=== PATIENT | male | born 1960 | race Caucasian/White ===

== ENCOUNTER 2023-05-16 08:05 | Outpatient (OUT) | payer OTHER, SELFPAY ==
[2023-05-16 08:57] LABS: Alanine Aminotransferase 76 U/L (16-63); Albumin Globulin Ratio 0.9; Albumin Level 3.8 g/dL (3.4-5.0); Alkaline Phosphatase 61 U/L (46-116); Anion Gap 14.3; Aspartate Amino Transferase 32 U/L (15-37); BUN Creatinine Ratio 18.2; Bilirubin Total 0.8 mg/dL (0.2-1.0); Carbon Dioxide 23.9 mmol/L (21.0-32.0); Chloride 104 mmol/L (98-107); Chol HDL Ratio 4.3; Cholesterol 196 mg/dL (<=200); Estimated GFR (African America >60 (>=60); Estimated GFR (Non-African Ame >60 (>=60); Glucose 105 mg/dL (74-106); HDL Cholesterol 46 mg/dL (40-60); LDL Cholesterol Calculated 131.4 mg/dL; Potassium 4.2 mmol/L (3.5-5.1); Sodium 138 mmol/L (136-145); Total Protein 7.8 g/dL (6.4-8.2); Triglycerides 93 mg/dL (<=150); VLDL CHOLESTEROL 18.6 mg/dL
[2023-05-16 09:58] LABS: Basophils Percent Auto 0.6 % (0.2-2.0); Eosinophils Absolute Auto 0.1 10^3/uL (0.0-0.7); Eosinophils Percent Auto 2.1 % (0.9-7.0); Hematocrit 48.6 % (42.0-54.0); Immature Granulocytes Abs Auto 0.02 10^3/uL (0.00-0.03); Immature Granulocytes Pct Auto 0.3 % (0.0-0.5); Lymphocytes Absolute Auto 2.3 10^3/uL (1.2-3.8); Lymphocytes Percent Auto 34.2 % (20.5-60.0); Mean Corpuscular HGB Conc 32.9 g/dL (29.9-35.2); Mean Corpuscular Hemoglobin 28.4 pg (25.9-34.0); Mean Corpuscular Volume 86.3 fL (80.0-94.0); Mean Platelet Volume 9.4 fL (9.5-13.5); Monocytes Absolute Auto 0.8 10^3/uL (0.3-0.8); Monocytes Percent Auto 11.4 % (1.7-12.0); Neutrophils Absolute Auto 3.4 10^3/uL (1.4-6.5); Neutrophils Percent Auto 51.4 % (43.0-75.0); Platelet Count 352 10^3/uL (150-450); Red Blood Count 5.63 10^6/uL (4.70-6.10); White Blood Count 6.7 10^3/uL (4.0-11.0)
[2023-05-16 10:55] LABS: Prostate Specific Antigen Scrn 1.44 ng/mL (<=4.00)
== END 2023-05-16 08:06 | disposition home or self-care (01) ==
LOC: LAB 08:13
PROVIDERS: PCP Internal Medicine; Visit Provider Internal Medicine
DX: Z00.00 Encounter for general adult medical examination without abnormal findings (principal)
CPT/HCPCS: 36415; 80053; 80061; 85025; G0103

== ENCOUNTER 2024-05-22 09:39 | Outpatient (OUT) | payer BC, SELFPAY ==
--- OUTSIDE RECORDS SUMMARY | 2024-05-22 09:51 | XMS_ITS | CCD ---
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 Name Role Phone Saad Delcid Primary Care Provider EVERARDO WELSH Attending Unavailable EVERARDO WELSH Referring SAAD Woodson Primary Care Unavailable EVERARDO WELSH Admitting Unavailable EVERARDO WELSH Attending Unavailable SAAD DELCID Primary Care Unavailable REQUEST, DR KNUTSON LISTED Admitting Unavaila ble MAU, DR DAVIS Primary Care Unavailable REQUEST, DR KNUTSON LISTED Consulting Unavaila ble REQUEST, DR KNUTSON LISTED Attending Unavaila ble MAU, DR DAVIS Consulting Unavailable MAU, DR DAVIS Attending Unavailable MAU, DR DAVIS Admitting Unavailable MAU, DR DAVIS Primary Care Unavailable Saad Delcid Unavailable Allergies Allergy Classification Reported Allergen(s) Allergy Type Date of Onset Reaction(s) Facility (1 source) patient allergy list reviewed by nurse or physicia Propensity to adverse reactions 4 Comment:Done Kofax Other Medications Current Medications Medication Drug Class(es) Dates Sig (Normalized) Sig (Original) acetaminophen 325 mg / oxyCODONE hydrochloride 7.5 mg oral tablet (2 sources) Opioid Agonist Start: 1 End: 1 oxyCODONE-acetamino phen (PERCOCET) 7.5-325 MG per tablet Indications: Postoperative pain Take 1 tablet by mouth every 6 hours as needed for Pain for up to 14 days. Intended supply: 30 days 40 tablet 0 06/15/2020 06/29/2020 Active azithromycin 250 mg oral tablet (5 sources) Macrolide Antimicrobial Start: 3 Azithromycin 250 MG as directed Orally daily for 5 days Apr, Active benazepril hydrochloride 10 mg oral tablet (9 sources) Angiotensin Converting Enzyme Inhibitor Start: 0 End: 5 take 1 tablet by mouth once daily Benazepril 10 mg tablet Active 10 MG PO Daily 90 90 April 18, 2024 5:14pm calcium chloride 0.0014 meq/ml / potassium chloride 0.004 meq/ml / sodium chloride 0.103 meq/ml / sodium lactate 0.028 meq/ml injectable solution (1 source) Start: 1 lactated ringers infusion cefuroxime 500 mg oral tablet (5 sources) Cephalosporin Antibacterial Start: 3 take 1 tablet by mouth every twelve hours Cefuroxime Axetil 500 MG 1 tablet Orally every 12 hrs for 7 day(s) Apr, Active cephalexin 500 mg oral capsule (2 sources) Cephalosporin Antibacterial Start: 1 End: 1 take 1 capsule by mouth three times daily cephALEXin (KEFLEX) 500 MG capsule Take 1 capsule by mouth 3 times daily for 7 days 21 capsule 0 06/15/2020 06/22/2020 Active cyclobenzaprine hydrochloride 10 mg oral tablet (2 sources) Muscle Relaxant Start: 1 End: 1 take 1 tablet by mouth three times daily as needed for muscle spasms cyclobenzaprine (FLEXERIL) 10 MG tablet Indications: Postoperative pain Take 1 tablet by mouth 3 times daily as needed for Muscle spasms 40 tablet 0 06/15/2020 06/29/2020 Active 1 ml diphenhydrAMINE hydrochloride 50 mg/ml cartridge (1 source) Histamine-1 Receptor Antagonist Start: 1 End: 1 diphenhydrAMINE (BENADRYL) injection 12.5 mg 2 ml fentaNYL 0.05 mg/ml injection (1 source) Opioid Agonist Start: 1 fentaNYL (SUBLIMAZE) injection 50 mcg 1 ml HYDROmorphone hydrochloride 1 mg/ml cartridge (1 source) Opioid Agonist Start: 1 HYDROmorphone (DILAUDID) injection 0.5 mg 10 ml lidocaine hydrochloride 10 mg/ml injection (1 source) Antiarrhythmic, Amide Local Anesthetic Start: 1 End: 1 lidocaine PF 1 % injection 1 mL 1 ml meperidine hydrochloride 25 mg/ml cartridge (1 source) Opioid Agonist Start: 1 meperidine (DEMEROL) injection 12.5 mg 2 ml metoclopramide 5 mg/ml prefilled syringe (1 source) Dopamine-2 Receptor Antagonist Start: 1 End: 1 metoclopramide (REGLAN) injection 10 mg 2 ml ondansetron 2 mg/ml injection (1 source) Serotonin-3 Receptor Antagonist Start: 1 End: 1 ondansetron (ZOFRAN) injection 4 mg sennosides, intermediate 8.6 mg oral tablet (2 sources) Start: 1 End: 1 take 2 tablets by mouth twice daily senna (SENOKOT) 8.6 MG tablet Take 2 tablets by mouth 2 times daily for 14 days 56 tablet 0 06/15/2020 06/29/2020 Active sildenafil 100 mg oral tablet (1 source) Phosphodiesterase 5 Inhibitor Start: 5 Sildenafil 100 mg tablet Active 100 MG PO Daily as needed for sexual activity 09 08May 21, 2024 12:00am administer 30 minutes to 4 hours before activity 3 ml sodium chloride 9 mg/ml injection (2 sources) Start: 1 sodium chloride flush 0.9 % injection 10 mL Completed/Discontinued Medications Medication Drug Class(es) Dates Sig (Normalized) Sig (Original) plenvu 140 gm solution reconstituted (5 sources) Osmotic Laxative, Vitamin C Start: 06-13-2021 Plenvu 140 GM dose 1 pouch at 4pm, dose 2 pouch A & B at 11pm Orally BID for 1 days [id number] PCN: [id number] GROUP:[id number] ID:[id number] Jun, Not-Taking/PRN Start: 06-13-2021 Plenvu 140 GM dose 1 pouch at 4pm, dose 2 pouch A & B at 11pm Orally BID for 1 days BIN:[id number] PCN: CNRX GROUP:[id number] ID:[id number] Jun, Not-Taking linseed oil 1000 mg oral capsule (1 source) Start: 06-28-2021 End: 05-11-2023 take 1 capsule by mouth once daily Flaxseed Oil 1,000 mg Capsule Discontinued 1000 MG PO Daily June 28, 2021 12:00am May 11, 2023 4:12pm Multivitamin Tablet (1 source) Start: 06-28-2021 End: 05-11-2023 take 1 tablet by mouth once daily Multivitamin Tablet Discontinued 1 TAB PO Daily June 28, 2021 12:00am May 11, 2023 4:12pm Problems Active Problems Problem Classification Problem Date Documented Date Episodic/Chronic Acute bronchitis (1 source) Acute bronchitis; Translations: [Acute bronchitis due to other specified organisms] Episodic Diabetes mellitus without complication (6 sources) Hyperglycemia; Translations: [Hyperglycemia, unspecified] Onset: 05-06-2017 Episodic Disorders of lipid metabolism (9 sources) Pure hypercholesterolemia; Translations: [Familial hypercholesterolemia] Onset: 01-25-2017 Resolved: 08-07-2019 05-15-2023 Chronic Essential hypertension (9 sources) Essential hypertension; Translations: [Essential (primary) hypertension] Chronic Hyperplasia of prostate (6 sources) Lower urinary tract symptoms due to benign prostatic hypertrophy; Translations: [Benign prostatic hyperplasia with lower urinary tract symptoms] Chronic Osteoarthritis (5 sources) Localized, primary osteoarthritis of the shoulder region; Translations: [Primary osteoarthritis, right shoulder] Chronic Other fractures (6 sources) Closed fracture lumbar vertebra; Translations: [Unspecified fracture of unspecified lumbar vertebra, initial encounter for closed fracture] Episodic Other fractures (1 source) Closed fracture of lumbar vertebra without spinal cord injury; Translations: [Closed fracture of lumbar vertebra without mention of spinal cord injury] Episodic Other nervous system disorders (1 source) Postoperative pain ; Translations: [Postoperative pain] Episodic Other nutritional; endocrine; and metabolic disorders (6 sources) Obesity; Translations: [Obesity, unspecified] Chronic Other nutritional; endocrine; and metabolic disorders (1 source) Obese class II; Translations: [Body mass index 35.0-35.9, adult] Onset: 01-25-2017 Chronic Other screening for suspected conditions (not mental disorders or infectious disease) (2 sources) Encounter for screening for malignant neoplasm of prostate; Translations: [Screening for malignant neoplasms of prostate] Onset: 05-25-2021 05-21-2024 Episodic Other upper respiratory infections (2 sources) Acute maxillary sinusitis, unspecified; Translations: [Acute frontal sinusitis, unspecified] Episodic Residual codes; unclassified (8 sources) Obstructive sleep apnea syndrome; Translations: [Obstructive sleep apnea (adult) (pediatric)] Onset: 01-25-2017 Resolved: 08-07-2019 05-13-2023 Chronic Residual codes; unclassified (1 source) Obstructive sleep apnea (adult) (pediatric); Translations: [Obstructive sleep apnea (adult)(pediatric)] 05-21-2024 Chronic Residual codes; unclassified (1 source) Pain; Translations: [Pain] Episodic Spondylosis; intervertebral disc disorders; other back problems (17 sources) Spondylosis; Translations: [Lumbar spondylosis with myelopathy] Onset: 01-25-2017 Resolved: 08-07-2019 06-09-2020 Chronic Spondylosis; intervertebral disc disorders; other back problems (2 sources) Low back pain; Translations: [Low back pain, unspecified] Onset: 02-02-2017 Episodic Unclassified (2 sources) Preprocedural examination done; Translations: [Pre-op examination] Onset: 06-10-2020 06-10-2020 Past or Other Problems Problem Classification Problem Date Documented Date Episodic/Chronic Malaise and fatigue (1 source) Malaise and fatigue; Translations: [Other malaise and fatigue] Onset: 05-06-2017 Episodic Other connective tissue disease (1 source) Adhesive capsulitis of shoulder; Translations: [Adhesive capsulitis of shoulder] Onset: 07-08-2015 Episodic Other connective tissue disease (1 source) Nontraumatic rupture of rotator cuff of left shoulder; Translations: [Unspecified rotator cuff tear or rupture of left shoulder, not specified as traumatic] Onset: 07-08-2015 Resolved: 08-07-2019 Episodic Other non-traumatic joint disorders (1 source) Shoulder joint pain; Translations: [Pain in right shoulder] Onset: 01-25-2017 Resolved: 08-07-2019 Episodic Other nutritional; endocrine; and metabolic disorders (1 source) Morbid obesity; Translations: [Morbid (severe) obesity due to excess calories] Onset: 01-25-2017 Resolved: 08-07-2019 Chronic Residual codes; unclassified (1 source) Postoperative state; Translations: [Other postprocedural status] Onset: 02-02-2017 Episodic Unclassified (1 source) Long-term current use of drug therapy; Translations: [Long-term (current) use of other medications] Onset: 09-05-2015 Results Test Name Value Interpretation Reference Range Facil ity In office Testingon 05-13-19 23 In office Testing [id number] 5#1.00CD:127 Normal [facility] COVID-19 Antigenon 2 COVID-19 Antigen Healthcare Worker?: N Reference Range: Negative Negative results, from patients with symptom onset beyond five days, should be treated as presumptive and confirmation with a molecular assay, if necessary, for patient management, may be performed. Negative results do not rule out COVID-19 and should not be used as the sole basis for treatment or patient management decisions, including infection control decisions. Negative results should be considered in the context of a patient's recent exposures, history and the presence of clinical signs and symptoms consistent with COVID-19. The Khalida SARS Antigen PETER does not differentiate between SARS-CoV and SARS-CoV-2. This test was developed and its performance characteristic determined by [employer] and validated at [facility]. This test has not been FDA cleared or approved. This test has been authorized by FDA under an Emergency Use Authorization (EUA). This test has been validated in accordance with the FDA's Guidance Document (Policy for Diagnostics Testing in Laboratories Certified to Perform High Complexity Testing under CLIA prior to Emergency Use Authorization for Coronavirus Disease-2019 during the Public Health Emergency) issued on June 12, 2019. This test is only authorized for the duration of time the declaration that circumstances exist justifying the authorization of the emergency use of in vitro diagnostic tests for detection of SARS-CoV-2 virus and/or diagnosis of COVID-19 infection under section 564(b)(1) of the Act, 21 U.S.C. 360bbb-3(b)(1), unless the authorization is terminated or revoked sooner. SARS-CoV+SARS-CoV-2 (COVID-19) Ag [Presence] in Respiratory specimen by Rapid immunoassay Negative for SARS Antigen by PETER PERFORMED BY: [place] [id number] PATHOLOGIST COLD PRESS OPERATOR MARIELA MENDIOLA M.D. [facility] Comment on above: Performed By: #### C OVID-19 KAYLIN GAXIOLAEG #### [address] Khalida Ag Negativeon 06-28-19 Khalida Ag Negative Negative Normal Negative [facility] Comment on above: Result Comment: This is a duplicate Khalida SARS Antigen (PETER) result to be used for statistical tracking purpose only. PERFORMED BY: [facility] [address] [place] [address] PATHOLOGIST COLD PRESS OPERATOR MARIELA MENDIOLA M.D. Performed By: #### C OVID-19 KHALIDA, SOFIANEG #### [facility] [address] CBC AUTO DIFFon 05-24-2021 BASO # 0.0 103/ul Normal 0.0-0.1 [facility] Comment on above: Performed By: #### C BC #### [facility] [address] [address] [address] Sujey Jimenez Basophils/100 WBC (Bld) 0.5 % Normal 0.2-2.0 [facility] Comment on above: Performed By: #### C BC #### [facility] [address] [address] [address] Sujey Jimenez EO # 0.2 103/ul Normal 0.0-0.7 [facility] Comment on above: Performed By: #### C BC #### [facility] [address] [address] [address] Sujey Jimenez Eosinophils/100 WBC (Bld) 2.5 % Normal 0.9-7.0 [facility] Comment on above: Performed By: #### C BC #### [facility] [address] [address] [address] Sujey Jimenez Erythrocyte distribution width (RBC) [Ratio] 14.5 % Normal 11.0-15.0 [facility] Comment on above: Performed By: #### C BC #### [facility] [address] [address] [address] Sujey Jimenez Hematocrit (Bld) [Volume fraction] 50.2 % Normal 42.0-54.0 [facility] Comment on above: Performed By: #### C BC #### [facility] [address] [place] [address] Dr. Sujey Jimenez Hemoglobin (Bld) [Mass/Vol] 16.4 g/dL Normal 14.0-18.0 [facility] Comment on above: Performed By: #### C BC #### [facility] [address] [place] [address] Dr. Sujey Jimenez IG # 0.04 10e3/ul Critically high 0.00-0.03 [facility] Comment on above: Performed By: #### C BC #### [facility] [address] [place] [address] Dr. Sujey Jimenez IG % 0.5 % Normal 0.0-0.5 [facility] Comment on above: Performed By: #### C BC #### [facility] [address] [place] [address] Dr. Sujey Jimenez LYMPH # 2.5 103/ul Normal 1.2-3.8 [facility] Comment on above: Performed By: #### C BC #### [facility] [address] [place] [address] Dr. Sujey Jimenez Lymphocytes/100 WBC (Bld) 28.8 % Normal 20.5-60.0 [facility] Comment on above: Performed By: #### C BC #### [facility] [address] [place] [address] Dr. Sujey Jimenez MANUAL DIFF REQ NO Normal [facility] Comment on above: Performed By: #### C BC #### [facility] [address] [place] [address] Dr. Sujey Jimenez MCH (RBC) [Entitic mass] 28.4 pg Normal 25.9-34.0 [facility] Comment on above: Performed By: #### C BC #### [facility] [address] [place] [address] Dr. Sujey Jimenez MCHC (RBC) [Mass/Vol] 32.7 g/dL Normal 29.9-35.2 [facility] Comment on above: Performed By: #### C BC #### [facility] [address] [place] [address] Dr. Sujey Jimenez MCV (RBC) [Entitic vol] 86.9 fL Normal 80.0-94.0 [facility] Comment on above: Performed By: #### C BC #### [facility] [address] [address] [address] Sujey Jimenez MONO # 1.1 103/ul Critically high 0.3-0.8 [facility] Comment on above: Performed By: #### C BC #### [facility] [address] [address] [address] Sujey Jimenez Monocytes/100 WBC (Bld) 12.4 % Critically high 1.7-12.0 [facility] Comment on above: Performed By: #### C BC #### [facility] [address] [place] [address] Dr. Sujey Jimenez NEUT # 4.9 103/ul Normal 1.4-6.5 [facility] Comment on above: Performed By: #### C BC #### [facility] [address] [place] [address] Dr. Sujey Jimenez Neutrophils/100 WBC (Bld) 55.3 % Normal 43.0-75.0 [facility] Comment on above: Performed By: #### C BC #### [facility] [address] [place] [address] Dr. Sujey Jimenez Platelet mean volume (Bld) [Entitic vol] 8.6 fL Critically low 9.5-13.5 [facility] Comment on above: Performed By: #### C BC #### [facility] [address] [place] [address] Dr. Sujey Jimenez PLT 302 103/ul Normal 150-450 [facility] Comment on above: Performed By: #### C BC #### [facility] [address] [place] [address] Dr. Sujey Jimenez RBC 5.78 106/ul Normal 4.70-6.10 [facility] Comment on above: Performed By: #### C BC #### [facility] [address] [place] [address] Dr. Sujey Jimenez WBC 8.8 103/ul Normal 4.0-11.0 [facility] Comment on above: Performed By: #### C BC #### [facility] [address] [place] [address] Dr. Sujey Jimenez PROF 14(COMP METB)on 022 Albumin [Mass/Vol] 3.9 g/dL Normal 3.5-5.0 [facility] Comment on above: Performed By: #### C MP #### [facility] [address] [place] [address] Dr. Sujey Jimenez Albumin/Globulin [Mass ratio] 1.0 {ratio} Normal [facility] Comment on above: Performed By: #### C MP #### [facility] [address] [place] [address] Dr. Sujey Jimenez ALP [Catalytic activity/Vol] 70 U/L Normal 38-126 [facility] Comment on above: Performed By: #### C MP #### [facility] [address] [place] [address] Dr. Sujey Jimenez ALT [Catalytic activity/Vol] 75 U/L Critically high 21-72 [facility] Comment on above: Performed By: #### C MP #### [facility] [address] [place] [address] Dr. Sujey Jimenez Anion gap [Moles/Vol] 13.0 mmol/L Normal [facility] Comment on above: Performed By: #### C MP #### [facility] [address] [place] [address] Dr. Sujey Jimenez AST [Catalytic activity/Vol] 43 U/L Normal 17-59 [facility] Comment on above: Performed By: #### C MP #### [facility] [address] [place] [address] Dr. Sujey Jimenez Bilirubin [Mass/Vol] 0.7 mg/dL Normal 0.2-1.3 [facility] Comment on above: Performed By: #### C MP #### [facility] [address] [place] [address] Dr. Sujey Jimenez Calcium [Mass/Vol] 9.3 mg/dL Normal 8.4-10.2 [facility] Comment on above: Performed By: #### C MP #### [facility] [address] [address] [address] Sujey Jimenez Chloride [Moles/Vol] 102 mmol/L Normal 98-107 [facility] Comment on above: Performed By: #### C MP #### [facility] [address] [address] [address] Sujey Jimenez CO2 [Moles/Vol] 27.4 mmol/L Normal 22.0-30.0 [facility] Comment on above: Performed By: #### C MP #### [facility] [address] [address] [address] Sujey Jimenez Creatinine [Mass/Vol] 1.04 mg/dL Normal 0.66-1.25 [facility] Comment on above: Performed By: #### C MP #### [facility] [address] [place] [address] Dr. Sujey Jimenez EGFR-AF CHILEAN >60 Normal >=60 [facility] Comment on above: Performed By: #### C MP #### [facility] [address] [address] [address] Sujey Jimenez EGFR-NON AF CHILEAN >60 Normal >=60 [facility] Comment on above: Performed By: #### C MP #### [facility] [address] [address] [address] Sujey Jimenez Globulin (S) [Mass/Vol] 4.0 g/dL Normal [facility] Comment on above: Performed By: #### C MP #### [facility] [address] [address] [address] Sujey Jimenez Glucose [Mass/Vol] 114 mg/dL Critically high 74-106 T [facility] Comment on above: Performed By: #### C MP #### [facility] [address] [place] [address] Dr. Sujey Jimenez Potassium [Moles/Vol] 4.4 mmol/L Normal 3.4-5.0 [facility] Comment on above: Performed By: #### C MP #### [facility] [address] [address] [address] Sujey Jimenez Protein [Mass/Vol] 7.9 g/dL Normal 6.1-8.2 [facility] Comment on above: Performed By: #### C MP #### [facility] [address] [address] [address] Sujey Jimenez Sodium [Moles/Vol] 138 mmol/L Normal 137-145 [facility] Comment on above: Performed By: #### C MP #### [facility] [address] [address] [address] Sujey Jimenez Urea nitrogen [Mass/Vol] 17.0 mg/dL Normal 9.0-20.0 [facility] Comment on above: Performed By: #### C MP #### [facility] [address] [address] [address] Sujey Jimenez Urea nitrogen/Creatinine [Mass ratio] 16.3 mg/mg Normal [facility] Comment on above: Performed By: #### C MP #### [facility] [address] [address] [address] Sujey Jimenez FLUORO FOR SURGICAL PROCEDUR ESon 06-15-2020 FLUORO FOR SURGICAL PROCEDURES : 06/15/2020 10:36 AM CLINICAL HISTORY: R52 Pain ICD10. COMPARISON: None available. Intraoperative fluoroscopy was provided for Dr. Welsh procedure. A total of 2.2 seconds of fluoroscopy was used, with 2 fluoroscopic stills saved. No diagnostic images were obtained. Please see Dr. Welsh surgical notes for completeness. OMG Phone: [facility], [facility] Incoming Radiant Results From [employer] - 06/15/2020 1:06 PM EDT FLUORO FOR SURGICAL PROCEDURES : 06/15/2020 10:36 AM CLINICAL HISTORY: R52 Pain ICD10. COMPARISON: None available. Intraoperative fluoroscopy was provided for Dr. Welsh procedure. A total of 2.2 seconds of fluoroscopy was used, with 2 fluoroscopic stills saved. No diagnostic images were obtained. Please see Dr. Welsh surgical notes for completeness. [employer] Phone: FLUORO FOR SURGICAL PROCEDURES FLUORO FOR SURGICAL PROCEDURES : 06/15/2020 10:36 AM CLINICAL HISTORY: R52 Pain ICD10. COMPARISON: None available. Intraoperative fluoroscopy was provided for Dr. Welsh procedure. A total of 2.2 seconds of fluoroscopy was used, with 2 fluoroscopic stills saved. No diagnostic images were obtained. Please see Dr. Welsh surgical notes for completeness. Interpreted by: Clayton Hirsch MD Signed by: Clayton Hirsch MD 06/15/20 Final result Normal [facility] COVID-19, NAAon 06-11-2020 COVID-19, MAITE Not Detected Normal Not Detect [facility] Comment on above: Result Comment: This nucleic acid amplification test was developed and its performance characteristics determined by [facility]. Nucleic acid amplification tests include RT-PCR and TMA. This test has not been FDA cleared or approved. This test has been authorized by FDA under an Emergency Use Authorization (EUA). This test is only authorized for the duration of time the declaration that circumstances exist justifying the authorization of the emergency use of in vitro diagnostic tests for detection of SARS-CoV-2 virus and/or diagnosis of COVID-19 infection under section 564(b)(1) of the Act, 21 U.S.C. 360bbb-3(b) (1), unless the authorization is terminated or revoked sooner. When diagnostic testing is negative, the possibility of a false negative result should be considered in the context of a patient's recent exposures and the presence of clinical signs and symptoms consistent with COVID-19. An individual without symptoms of COVID-19 and who is not shedding SARS-CoV-2 virus would expect to have a negative (not detected) result in this assay. Performed at: [address], [place], [place] [id number] [employer] Mechanic: Jaspreet Borja PhD, Phone: [phone] Performed By: #### I RCOV #### [facility] [address] [place] [address] CBC With Platelet No Differe ntialon 06-10-2020 Erythrocyte distribution width (RBC) [Ratio] 14.3 % Normal 11.5-14.5 [facility] Comment on above: Performed By: #### C BCND #### [facility] [address] [place] [address] Hematocrit (Bld) [Volume fraction] 48.8 % Normal 42.0-52.0 [facility] Comment on above: Performed By: #### C BCND #### [facility] [address] [place] [address] Hemoglobin (Bld) [Mass/Vol] 16.3 g/dL Normal 14.0-18.0 [facility] Comment on above: Performed By: #### C BCND #### [facility] [address] [place] [address] MCH (RBC) [Entitic mass] 28.7 pg Normal 27.0-31.3 [facility] Comment on above: Performed By: #### C BCND #### [facility] [address] [place] [address] MCHC (RBC) [Mass/Vol] 33.4 % Normal 33.0-37.0 [facility] Comment on above: Performed By: #### C BCND #### [facility] [address] [place] [address] MCV (RBC) [Entitic vol] 85.9 fL Normal 80.0-100.0 [facility] Comment on above: Performed By: #### C BCND #### [facility] [address] [place] [address] Platelets (Bld) [#/Vol] 321 10*3/uL Normal 130-400 [facility] Comment on above: Performed By: #### C BCND #### [facility] [address] [place] [address] RBC (Bld) [#/Vol] 5.69 10*6/uL Normal 4.70-6.10 [facility] Comment on above: Performed By: #### C BCND #### [facility] [address] [place] [address] WBC (Bld) [#/Vol] 7.5 10*3/uL Normal 4.8-10.8 [facility] Comment on above: Performed By: #### C BCND #### [facility] [address] [place] [address] COVID-19, NAAon 06-10-2020 Source Swab Anterior nares Normal [facility] Comment on above: Performed By: #### I RCOV #### [facility] [address] [place] [address] Partial Thromboplastin Timeo n 06-10-2020 aPTT Coag (Bld) [Time] 37.3 s Critically high 24.4-36.8 [facility] Comment on above: Result Comment: Effe ctive 01/14/2020: Heparin Therapeutic Range: 64.0 ? 98.0 seconds. Performed By: #### P TT #### [facility] [address] [facility] [place] [address] Prothrombin Timeon INR Coag (PPP) [Relative time] 1.1 {INR} Normal [facility] Comment on above: Performed By: #### P T #### [facility] [address] [place] [address] PT Coag (PPP) [Time] 14.0 s Normal 12.3-14.9 [facility] Comment on above: Performed By: #### P T #### [facility] [address] [facility] [place] [address] Type and Screen Capture 3 sc rn cellon 06-10-2020 Type and Screen Capture 3 scrn cell PATIENT: CARLOS EDUARDO LENNON LOC: [facility] BILL# : [id number] : 1960 SEX: M ORDERED BY: TYRA NASH ORDERED : 06/10/2020 10:50 COLLECTED: 06/10/2020 10:52 ORDER : [id number] RECEIVED : 06/10/2020 14:13 TEST NAME RESULT UNITS RANGES ABN FL ST ABORH Capture A POS F Antibody 3 Cell Scrn Captu NEG F Normal [facility] Comment on above: Performed By: #### T S3C #### [facility] [address] [place] [id number] Vital Signs Date Time Vital Sign Value Performing Clinician Naman samaniego 05-21-2024 09:35-0400 Body height 187.96 cm [facility] 05-21-2024 09:35-0400 Body mass index (BMI) [Ratio] 32 kg/m2 [facility] 05-21-2024 09:35-0400 Body weight 113.17 kg [facility] 05-21-2024 09:35-0400 Diastolic blood pressure 93 mm[Hg] [facility] 05-21-2024 09:35-0400 Heart rate 102 /min [facility] 05-21-2024 09:35-0400 Respiratory rate 12 /min [facility] 05-21-2024 09:35-0400 Systolic blood pressure 152 mm[Hg] [facility] 06-15-2020 13:35-0400 BP Diastolic 79 mm[Hg] [employer] Work Phone: 06-15-2020 13:35-0400 BP Systolic 127 mm[Hg] [facility] Phone: 06-15-2020 13:35-0400 Pulse (Heart Rate) 87 /min [facility] Work Phone: 06-15-2020 13:35-0400 Pulse Oximetry 99 % [facility] Work Phone: 06-15-2020 13:35-0400 Respiratory Rate 17 /min Everardo [facility] Work Phone: 06-15-2020 13:20-0400 Body Temperature 98.1 [degF] [facility] Work Phone: Encounters Encounter Date Encounter Type Care Provider Facility Start: 05-21-2024 End: 05-21-2024 ambulatory [facility] Work Phone: Start: 05-21-2024 End: 05-21-2024 Encounter for general adult medical examination without abnormal findings [facility] Start: 05-21-2024 End: 05-21-2024 Patient encounter procedure [facility] Work Phone: Start: 04-19-2023 End: 04-19-2023 ambulatory Saad Delcid Other [facility] Other Start: 04-19-2023 Telephone encounter Saad GAGNON [facility] Start: 05-03-2022 End: 05-03-2022 ambulatory Saad Delcid Other [facility] Other Start: 05-03-2022 Telephone encounter Saad GAGNON [facility] Start: 04-27-2022 End: 04-27-2022 ambulatory Saad Delcid Other [facility] Other Start: 04-27-2022 Telephone encounter Saad Delcid FP [facility] Start: 04-21-2022 End: 04-21-2022 ambulatory Saad Delcid Other [facility] Other Start: 04-21-2022 Office outpatient vi sit 10 minutes Saad Delcid [facility] Start: 08-25-2021 End: 08-26-[address] NONE LISTED REQUEST Facility: Start: 05-25-2021 Encounter for genera l adult medical examination without abnormal findings DR SAAD DELCID [facility] Start: 05-24-2021 End: 05-25-[address] SAAD DELCID Facility:[facility] Start: 05-24-2021 End: 05-25-2021 Encounter for general adult medical examination without abnormal findings DR SAAD DELCID Facility:[facility] Start: 05-13-2021 Adult health examination Demarco Delcid Other [facility] [employer] Other Start: 06-15-2020 End: 06-15-2020 Patient encounter procedure [facility] Start: 06-15-2020 End: 06-15-2020 Subsequent hospital visit by physician Everardo Graf Phone: [facility] Comment on above: Postoperative pain ( Primary Dx) Start: 06-15-2020 End: 06-18-2020 Patient encounter procedure [facility] Start: 06-15-2020 End: 06-17-2020 Subsequent hospital visit by physician Everardo Graf Phone: [facility] Comment on above: Pain Procedures Date Procedure Procedure Detail Performing Clinician Start: 08-25-[address] ZENIA Kilpatrick [facility] RE[facility] Comment on above: Performed By: #### D ATPSA #### [facility] [address] [place] [address] Dr. Sujey Jimenez Start: 05-24-[address] ZENIA Kilpatrick [facility] Comment on above: Performed By: #### P SASC #### [facility] [address] [address] [address] Sujey Jimenez Start: 06-15-2020 Fluoroscopy during operation Everardo Graf Phone: Start: 04-18-2018 End: 08-07-2019 General examination of patient Saad Delcid Other Start: 04-18-2018 End: 08-07-2019 Screening for malignant neoplasm of colon Saad Delcid Other Start: 11-16-2017 Laboratory test resu lt abnormal Saad Delcid Other Start: 01-25-2017 End: 08-07-2019 Screening for malignant neoplasm of prostate Saad Delcid Other Depression screening Naun Delcid Other Plan of Treatment Date Care Activity Detail Author Start: 11-10-2020 Influenza vaccination Flu vacc ine (Season Ended) [facility] Phone: Start: 06-30-2020 End: 06-30-2020 Office Visit 06/30/2020 Office Visit Neurosurgery Everardo Welsh MD [address], [address] [place] [id number] [employer] Start: 10-16-2011 Screening for malign ant neoplasm of colon Colon cancer screen colonoscopy [facility] Phone: Start: 10-16-2011 Shingles Vaccine (1 of 2) Shingles Vaccine (1 of 2) [facility] Phone: Start: 2001 Diabetes screen Diabetes screen [facility] [employer] Phone: Start: 2001 Lipid panel Lipid screen [facility] Work Phone: Start: 1980 DTaP/Tdap/Td vaccine (1 - Tdap) DTaP/Tdap/Td vaccine (1 - Tdap) [facility] [employer] Phone: Start: 1977 COVID-19 Vaccine (1) COVID-19 Vaccin e (1) [facility] Phone: Start: 1976 HIV screening HIV screen [facility] Work Phone: Start: 1960 Creatinine measurement Creatinine mo nitoring [facility] [employer] Phone: Start: 1961 Hepatitis C screening Hepatitis C sc reen [facility] [employer] Phone: Start: 1960 Potassium monitoring Potassium monit oring [facility] Phone: Comprehensive metabo lic 2000 panel - Serum or Plasma [facility] Phase I & II - meter ed glucose Phase I & II - metered glucose Point of Care Testing Routine As Needed until discontinued starting 06/15/2020 [facility] Phone: Comment on above: As Needed until disc ontinued starting 06/15/2020 [facility] Immunizations Immunization Date Immunization Notes Care Provider Fa cility 03-03-2021 COVID-19 mRNA, Comir pablo (Pfizer) [facility] 06-22-2020 COVID-19 mRNA, Comir pablo (Pfizer) [facility] 05-31-2020 COVID-19 mRNA, Comir pablo (Pfizer) [facility] Payers Date Payer Category Payer Unknown [id number] 1960 Unknown [id number] 1960 Unknown [id number] 1960 Unknown [id number] 1958 Private Health Insurance [id number] 1958 Self-pay Unknown [id number] Unknown [employer] BC/BS [id number] Social History Date Type Detail Facility Start: 06-15-2020 End: 06-29-2021 Tobacco smoking status NHIS Never smoker [facility] Start: 06-15-2020 End: 06-16-2020 Tobacco use and exposure Never used [facility] Phone: Start: 06-15-2020 End: 06-16-2020 Alcohol intake Current drinker of alcohol (finding) [facility] Phone: Start: 01-30-2020 History SDOH Alcohol Frequency 3 [facility] Work Phone: Start: 01-30-2020 History SDOH Alcohol Std Drinks 1 [facility] Phone: Start: 06-10-2020 History SDOH Food Worry 2 [facility] Work Phone: Sex Assigned At Not on file [facility] Work Phone: Exposure to SARS-CoV -2 (event) Not sure [facility] Phone: Sex Assigned At Sex Assigned At Bir th [facility] Other Start: 05-21-2024 Sex Male (finding) [facility] Start: 1960 Sex Assigned At Male F [facility] Evaluation note 04-27-2022 Note Date & Type Note Facility 04-27-2022 Evaluation note Encounter Date Diagnosis Assessment Notes Apr, Acute non-recurrent frontal sinusitis (ICD-10 - J01.10) [facility] Other Evaluation note 04-21-2022 Note Date & Type Note Facility 04-21-2022 Evaluation note Encounter Date Diagnosis Assessment Notes Apr, Acute non-recurrent maxillary sinusitis (ICD-10 - J01.00) Instructed to use Robitussin or Mucinex for cough, saline or Flonase NS for congestion, Tylenol for pain and fever. Apr, Essential hypertension (ICD-10 - I10) [facility] Other Evaluation note Note Date & Type Note Facility Evaluation note No Information [employer] Other Evaluation note Note Date & Type Note Facility Evaluation note Diagnosis Onset Date Resolution Elevated cholesterol acute Levi h 2024 9:28am Essential hypertension acute Ma rch 2024 9:28am Lumbar spondylosis acute May 21, 2024 9:28am Obstructive sleep apnea acute M arch 2024 9:28am Screening PSA (prostate specific antigen) noneactive May 21 9:28am Wellness examination noneactive 2024 9:28am [facility] Work Phone: History general Narrative - Reported Note Date & Type Note Facility History general Narrative - Reported Type Medical History Hyperglycemia Medical History Hyperlipidemia type II Medical History Essential hypertension Medical History Lumbar spondylosis w ith myelopathy Medical History Primary osteoarthrit is, right shoulder Medical History Obesity (BMI 30-39.9) Medical History Lumbosacral spondylo sis with radiculopathy Medical History Obstructive sleep apnea Medical History Benign prostatic hyp erplasia with lower urinary tract symptoms Medical History Closed fracture of l umbar vertebra Surgical History Colonoscopy 06/29/21 Surgical History Lumbar Discectomy 06/01/21 Surgical History Lumbar Discectomy 03/18/2013 Hospitalization History see surgical history [facility] Other Summary Purpose Family History Relationship Condition Age at Onset Recorded Date/T yahaira father Myocardial infarction Unknown Advance Directives Advance Directive Response Recorded Date/ Time Advance Directives No June 21 022 12:04pm Discharge Instructions * Instructions* Everardo Welsh MD - 06/15/2020 medication given may have significant effects after discharge. Therefore on the day of surgery: 1) you should be accompanied by a responsible adult upon discharge and for 24 hours after surgery. Do not drive a motor vehicle, operate machinery, power tools or appliance, drink alcoholic beverages, or make critical decisions for 24 hours 2) Be aware of dizziness, which may cause a fall. Change positions slowly. 3) Eating: you may resume your regular diet but it is better to increase intake slowly with mild foods and working up to your regular diet. 4) Nausea/Vomiting: Nausea and vomiting may occur as you become more active or begin to increase food intake. If this should happen, decrease activity and return to liquids. 5) Pain: Your surgeon may have given you a prescription for pain medication. Take pain medication with food as prescribed. Pain medication may cause constipation, so drink plenty of fluids. You may need to use laxatives. 6) Ice: You may use a cool pack to operative site for 20 min 5-6 times a day as needed for comfort. 8) Dressing: Change dressing as frequently as needed to keep clean and dry. Remove all sticky tape in 5 days. May shower in three days. Do not put soap or soak on the incision until healed. 9) INCREASE ACTIVITY TOLERATED AND INSTRUCTED. GO BY HOW YOU FEEL. 10) See physical therapist when advised by your physician 11) Call your doctor at [phone] for an appointment (or follow up as scheduled). 12) If have an order for X-Rays have done within a week before your follow up appointment. Contact OFFICE IF o Increased redness, swelling, excess drainage, and/or pain to surgery site. As well as new onset fevers and or chills. These could signify an infection. o Calf or thigh tenderness to touch as well as increased swelling or redness. This could signify a clot formation. o Numbness or tingling to an area around the incision site or below the incision site (toes). Or ifthe operative extremity becomes cold, blue. o Any rash appears, increased or new onset nausea/vomiting occur. This may indicate a reaction to amedication. o Temp is 38.5 C (101F) 12) If you have any concerns or questions, please call OFFICE. The 24- hour phone is [phone] 13) If you are unable to contact your surgeon, in an emergency situation, go to the nearest hospital emergency room. 14) ice pack to the incision 15) no driving 16) shower on Sunday documented in this encounter Assessments Diagnosis Postoperative pain- Primary Other acute postoperative pain Diagnosis Pain Generalized pain Reason for Referral Status Reason Specialty Diagnoses / Procedures Referred By Contact Referred To Contact Pending Review Radiology Diagnoses Pain Procedures Fluoro For Surgical Procedures Everardo Welsh MD [address], [address] [place] [address] Chief Complaint and Reason for Visit Chief Complaint Admit Date Wellness May 21, 2024 9:2 8am Reason for Visit Admit Date Elevated cholesterol May 21, 2024 9: 28am Essential hypertension May 21, 2024 9:28am Lumbar spondylosis May 21, 2024 9:2 8am Obstructive sleep apnea May 21, 2024 9:28am Screening PSA (prostate specific antigen ) May 21, 2024 9:28am Wellness examination May 21, 2024 9: 28am Additional Source Comments (unrecognized sect ion and content) No Status Records FoundNo Status Records FoundNo Status Records FoundNo Status Records FoundNo Status Records Found INFORMATION SOURCE (unrecogn ized section and content) DATE CREATED AUTHOR 06/13/2020 [facility] DATE CREATED AUTHOR AUTHOR'S ORGANIZ ATION [facility] DATE CREATED AUTHOR AUTHOR'S ORGANIZ ATION 07/05/2021 [facility] DATE CREATED AUTHOR AUTHOR'S ORGANIZ ATION 08/26/2021 [facility] DATE CREATED AUTHOR AUTHOR'S ORGANIZ ATION 05/13/2022 [facility] Reason for Visit (unrecogniz ed section and content) Status Reason Specialty Diagnoses / Procedures Referre d By Contact Referred To Contact Diagnoses Spinal stenosis, lumbar region with neurogenic claudication SPINAL STENOSIS Procedures ND LAMNOTMY INCL W/DCMPRSN NRV ROOT 1 INTRSPC LUMBR ND LAMINEC/FACETECT/FORAMIN ,EACH ADDNL LAMINEC/FACETECT/FORAMIN ,LUMBAR 1 SEG L4 L5 DECOMPRESSION 1,5 HRS/ 1 C-ARM, PAT [facility] Everardo Welsh MD [address], [address] [place] [address] [facility] Ordered Prescriptions (unrec ognized section and content) Prescription Sig Dispensed Refills Start Date End Da te cyclobenzaprine (FLEXERIL) 10 MG tabletIndications:Posto perative pain Take 1 tablet by mouth 3 times daily as needed for Muscle spasms 40 tablet 0 06/15/2020 06/29/2020 senna (SENOKOT) 8.6 MG tablet Take 2 tablets by mouth 2 times daily for 14 days 56 tablet 0 06/15/2020 06/29/2020 cephALEXin (KEFLEX) 500 MG capsule Take 1 capsule by mouth 3 times daily for 7 days 21 capsule 0 06/15/2020 06/22/2020 oxyCODONE-acetaminophen (PERCOCET) 7.5-325 MG per tabletIndications:Posto perative pain Take 1 tablet by mouth every 6 hours as needed for Pain for up to 14 days. Intended supply: 30 days 40 tablet 0 06/15/2020 06/29/2020 Care Teams (unrecognized sec tion and content) Team Status: Active Member Role Status Dates Saad Delcid DO Primary Care Provider Active Team Status: Inactive Member Role Status Dates Saad Delcid DO Primary Care Provide r, Attending Provider Active Start: May 21, 2024 End: May 21, 2024 Goals (unrecognized section and content) Goals may be documented in a n alternate section FOR RECORDS PERTAINING TO PATIENTS WHO ARE OR HAVE BEEN ENROLLED IN A CHEMICAL DEPENDENCY/SUBSTANCEABUSE PROGRAM, SOME INFORMATION MAY BE OMITTED. This clinical summary was aggregated from multiple sources. Caution should be exercised in using it in the provision of clinical care. This summary normalizes information from multiple sources, and as a consequence, information in this document may materially change the coding, format and clinical context of patient data. In addition, data may be omitted in some cases. CLINICAL DECISIONS SHOULD BE BASED ON THE PRIMARY CLINICAL RECORDS. [facility] [employer] [facility]. provides no warranty or guarantee of the accuracy or completeness of information in this document.
[2024-05-22 09:54] LABS: Basophils Percent Auto 0.4 % (0.2-2.0); Eosinophils Absolute Auto 0.2 10^3/uL (0.0-0.7); Eosinophils Percent Auto 2.3 % (0.9-7.0); Hematocrit 47.9 % (42.0-54.0); Hemoglobin 15.7 g/dL (14.0-18.0); Immature Granulocytes Abs Auto 0.02 10^3/uL (0.00-0.03); Immature Granulocytes Pct Auto 0.2 % (0.0-0.5); Lymphocytes Absolute Auto 2.4 10^3/uL (1.2-3.8); Lymphocytes Percent Auto 28.6 % (20.5-60.0); Mean Corpuscular HGB Conc 32.8 g/dL (29.9-35.2); Mean Corpuscular Hemoglobin 28.4 pg (25.9-34.0); Mean Corpuscular Volume 86.8 fL (80.0-94.0); Mean Platelet Volume 8.8 fL (9.5-13.5); Neutrophils Absolute Auto 4.6 10^3/uL (1.4-6.5); Neutrophils Percent Auto 56.5 % (43.0-75.0); Platelet Count 293 10^3/uL (150-450); Red Blood Count 5.52 10^6/uL (4.70-6.10); Red Cell Distribution Width 14.6 % (11.0-15.0); White Blood Count 8.2 10^3/uL (4.0-11.0)
[2024-05-22 10:26] LABS: Alanine Aminotransferase 43 U/L (16-63); Albumin Globulin Ratio 1.1; Albumin Level 3.9 g/dL (3.4-5.0); Alkaline Phosphatase 65 U/L (46-116); Anion Gap 15.3; Aspartate Amino Transferase 26 U/L (15-37); BUN Creatinine Ratio 17.5; Bilirubin Total 0.7 mg/dL (0.2-1.0); Calcium 9.3 mg/dL (8.5-10.1); Carbon Dioxide 24.2 mmol/L (21.0-32.0); Chloride 105 mmol/L (98-107); Chol HDL Ratio 3.5; Cholesterol 173 mg/dL (<=200); Estimated GFR (African America >60 (>=60 mL/min/1.73m^2); Estimated GFR (Non-African Ame >60 (>=60 mL/min/1.73m^2); Globulin 3.6 g/dL; Glucose 106 mg/dL (74-106); HDL Cholesterol 49 mg/dL (40-60); LDL Cholesterol Calculated 106.6 mg/dL; Potassium 4.5 mmol/L (3.5-5.1); Sodium 140 mmol/L (136-145); Total Protein 7.5 g/dL (6.4-8.2); Triglycerides 87 mg/dL (<=150); VLDL CHOLESTEROL 17.4 mg/dL
[2024-05-22 10:49] LABS: Prostate Specific Antigen Scrn 1.42 ng/mL (<=4.00)
== END 2024-05-22 09:40 | disposition home or self-care (01) ==
LOC: LAB 09:41
PROVIDERS: PCP Internal Medicine; Visit Provider Internal Medicine
DX: Z00.00 Encounter for general adult medical examination without abnormal findings (principal)
CPT/HCPCS: 36415; 80053; 80061; 85025; G0103